=== PATIENT | female | born 1975 | race African-American/Black ===

== ENCOUNTER 2018-09-18 18:06 | Emergency (ER) | payer MEDICAID ==
[~2018-09-18] VITALS: Ht 167.6 cm; Wt 80.0 kg
[~2018-09-18 18:06] MED LIST: SEROQUEL; TRAZADONE; TYLENOL 3
[2018-09-18 22:36] LABS: BASOPHILS % 0.5 % (0.0-2.0); EOSINOPHILS % 1.3 % (0.0-5.0); HEMATOCRIT. 43.6 % (36.0-48.0); HEMOGLOBIN. 14.5 g/dL (12.0-16.0); LYMPHOCYTES % 45.5 % (20.0-50.0); MEAN CORPUSCULAR HEMOGLOBIN 31.1 pg (28.0-32.0); MEAN CORPUSCULAR VOLUME 93.8 fL (81.0-99.0); MEAN PLATELET VOLUME 6.6 fl (7.4-10.4); MONOCYTES % 8.3 % (2.0-8.0); NEUTROPHILS % 44.4 % (40.0-76.0); PLATELET 431 x1000/uL (130-400); RED BLOOD CELL COUNT 4.65 mill/uL (4.2-5.4); RED CELL DISTRIBUTION WIDTH 19.1 % (11.6-14.6)
[2018-09-18 22:37] LABS: CHLORIDE 105 mEq/L (98-107)
[2018-09-18 22:38] LABS: CLARITY URINE CLEAR (CLEAR); COLOR URINE YELLOW (YELLOW); KETONES URINE TRACE (NEGATIVE); LEUKOCYTE ESTERASE URINE NEGATIVE (NEGATIVE); NITRITE URINE NEGATIVE (NEGATIVE); OCCULT BLOOD URINE 2+ (NEGATIVE); PROTEIN URINE NEGATIVE (NEGATIVE); SPECIFIC GRAVITY URINE 1.005 (1.005-1.030)
[2018-09-18 22:46] LABS: CREATINE KINASE 262 IU/L (26-192)
[2018-09-18 22:48] LABS: *AMPHETAMINES SCREEN URINE NEGATIVE (NEGATIVE); *BARBITURATES SCREEN URINE NEGATIVE (NEGATIVE); *BENZODIAZEPINES SCREEN URINE NEGATIVE (NEGATIVE)
[2018-09-18 22:50] LABS: CANNABINOID URINE SCREEN NEGATIVE (NEGATIVE); METHADONE URINE SCREEN NEGATIVE (NEGATIVE); OPIATES URINE SCREEN NEGATIVE (NEGATIVE); PHENCYCLIDINE URINE SCREEN NEGATIVE (NEGATIVE)
[2018-09-18 23:11] LABS: ETHANOL BLOOD 297 mg/dL
[2018-09-18 23:17] LABS: *COCAINE SCREEN URINE PRESUMTIVE POSITIVE (NEGATIVE)
[2018-09-18] MEDS ORDERED: POTASSIUM CHLORIDE 20MEQ TABLET SR PO ONE (23:30)
[2018-09-18] MEDS ORDERED: MAGNESIUM 1 G PREMIX 100 ML IV ONE (23:30)
[2018-09-18] MEDS ORDERED: FOLIC ACID 1 MG, THIAMINE HCL 100 MG, MVI, ADULT NO.1 10 ML in DEXTROSE 5% WATER 1,000 ML IV ONE ×4 (23:30)
[2018-09-19 04:10] LABS: CHLORIDE 103 mEq/L (98-107)
[2018-09-19] MEDS ORDERED: IBUPROFEN 600MG TABLET PO ONE ×2 (09:30→22:15)
[2018-09-19] MEDS: POTASSIUM CHLORIDE 20MEQ TABLET SR PO SCH ×2 (09:59→10:00)
[2018-09-19] MEDS ORDERED: PROPRANOLOL HCL 10MG TABLET PO ONE (10:15)
[2018-09-19] MEDS ORDERED: HYDROCHLOROTHIAZIDE 25MG TABLET PO ONE (10:15)
[2018-09-19] MEDS ORDERED: ONDANSETRON HCL 4MG/2ML INJ IV ONE (10:30)
[2018-09-20] MEDS: POTASSIUM CHLORIDE 20MEQ TABLET SR PO SCH (09:59)
[2018-09-20] MEDS ORDERED: IBUPROFEN 600MG TABLET PO STA (10:46)
[2018-09-20 16:53] VITALS: BP 152/94
== END 2018-09-20 17:02 | disposition home or self-care (01) ==
LOC: ER 18:06
DX: R40.4 Transient alteration of awareness (principal); F32.9 Major depressive disorder, single episode, unspecified; R45.851 Suicidal ideations; F14.10 Cocaine abuse, uncomplicated; F10.129 Alcohol abuse with intoxication, unspecified; E87.6 Hypokalemia; J45.909 Unspecified asthma, uncomplicated; I10 Essential (primary) hypertension; F12.10 Cannabis abuse, uncomplicated; Z88.6 Allergy status to analgesic agent; Y90.8 Blood alcohol level of 240 mg/100 ml or more
CPT/HCPCS: 36415; 70450; 71045; 80048; 80053; 80305; 80307; 80329; 81003; 81025; 82550; 83735; 84443; 85025; 96365; 96368; 99284; G0482; J2405; J3411; J3475; J3490; J7070

== ENCOUNTER 2018-11-04 15:04 | Emergency (ER) | payer MEDICAID ==
[~2018-11-04] VITALS: Ht 160 cm; Wt 100.0 kg
[2018-11-04 15:30] VITALS: BP 143/95
== END 2018-11-04 17:42 | disposition home or self-care (01) ==
LOC: ER 15:04
DX: Z76.0 Encounter for issue of repeat prescription (principal); I10 Essential (primary) hypertension
CPT/HCPCS: 99283

== ENCOUNTER 2019-06-26 20:53 | Emergency (ER) | payer MEDICAID ==
[~2019-06-26] VITALS: Ht 172.7 cm; Wt 104.0 kg
[2019-06-26 21:54] LABS: CLARITY URINE CLEAR (CLEAR); COLOR URINE YELLOW (YELLOW); KETONES URINE NEGATIVE (NEGATIVE); LEUKOCYTE ESTERASE URINE NEGATIVE (NEGATIVE); NITRITE URINE NEGATIVE (NEGATIVE); OCCULT BLOOD URINE NEGATIVE (NEGATIVE); PH URINE 5.5 (4.5-8.0); PROTEIN URINE NEGATIVE (NEGATIVE); SPECIFIC GRAVITY URINE 1.002 (1.005-1.030); UROBILINOGEN URINE 0.2 E.U./dL (0.2-1.0)
[2019-06-26] MEDS ORDERED: KETOROLAC 60MG/2ML VIAL IM ONE (23:45)
[2019-06-27 00:18] VITALS: BP 168/78
== END 2019-06-27 00:33 | disposition home or self-care (01) ==
LOC: ER 21:03
DX: G89.21 Chronic pain due to trauma (principal); R10.2 Pelvic and perineal pain; M19.90 Unspecified osteoarthritis, unspecified site; J45.909 Unspecified asthma, uncomplicated; F32.9 Major depressive disorder, single episode, unspecified; I10 Essential (primary) hypertension; Z88.1 Allergy status to other antibiotic agents; Z76.0 Encounter for issue of repeat prescription
CPT/HCPCS: 81003; 81025; 96372; 99283; J1885

== ENCOUNTER 2021-02-27 23:43 | Emergency (ER) | payer MEDICAID ==
[~2021-02-27] VITALS: Ht 175.3 cm; Wt 137.0 kg
[2021-02-28] MEDS ORDERED: TOPUD MT (00:59)
[2021-02-28] MEDS ORDERED: ACETAMINOPHEN 325MG TABLET PO ONE (01:00)
[2021-02-28 01:21] VITALS: BP 144/79
== END 2021-02-28 01:24 | disposition home or self-care (01) ==
LOC: ER 23:43 → EDUNIT# 23:43 → ER 02-28 01:24
DX: G89.29 Other chronic pain (principal); M54.2 Cervicalgia; R45.851 Suicidal ideations; I10 Essential (primary) hypertension
CPT/HCPCS: 99283